=== PATIENT | male | born 1945 | race Caucasian/White ===

== ENCOUNTER 2017-05-12 05:52 | Day surgery (SDC) | payer MEDICARE, OTHER ==
[~2017-05-12] VITALS: Ht 175.3 cm; Wt 88.5 kg
--- NOTE | ~2017-05-12 | OP ---
PATIENT NAME: ANNMARIE BARNHART MEDICAL RECORD: [id number] :49 LOCATION:D.OPS ADMISSION DATE: SURGEON: ALEXANDER VEE MD DATE OF OPERATION: 05/12/2017 PREOPERATIVE DIAGNOSIS: History of complex colon polyps with tattoo polyps at 35 cm and 75 cm. POSTOPERATIVE DIAGNOSES: 1. History of complex colon polyps with tattoo polyps at 35 cm and 75 cm with significant regrowth of the polyp at 75 cm, there was a new 6 mm x 6 mm sessile polyp in the ascending colon. 2. No regrowth of any polypoid lesion at the 35 cm tattoo. PROCEDURES: 1. Total colonoscopy to cecum. 2. Hot biopsy forceps polypectomy times 1. 3. Polypectomy at 75 cm, which was a piecemeal polypectomy with epinephrine injection and then, ablation of the base of the polyp with the argon plasma practice administrator. SURGEON: Alexander Vee MD. SOLAR SALES MANAGER: None. BLOOD LOSS: Minimal. ANESTHESIA: General. COMPLICATIONS: None. The risks, possible complications and alternatives to procedure were explained to the patient. He elects to proceed. OPERATIVE COURSE: The patient was conveyed to the operating room electively on 05/12/2017. General anesthesia was induced by anesthesia staff. The patient was placed in the Singh position. A digital rectal examination was performed. A colonoscope was inserted through the anus. It was easily advanced to the cecum. Upon withdrawal, I irrigated and aspirated extensively. I dragged the folds. The pullback was greater than an 18-minute pullback. The prep was adequate. A small polyp was noted in the ascending colon. This was removed in its entirety utilizing hot biopsy forceps polypectomy technique. At 35 cm, the tattoo was noted. Across from the tattoo was the polypoid lesion, which was somewhat pedunculated. I advanced the sclerotherapy needle. Epinephrine injection was performed at the base of the polyp with 3 cc of dilute epinephrine solution. I tried to wrap the snare around the polyp, but this was not successful. I then removed the polyp in a piecemeal fashion. Numerous biopsies were taken. There was very little bleeding. I then utilized the argon plasma practice administrator with the right colon setting in the forced mode to ablate any residual polypoid tissue. I then continued to withdraw the endoscope. I irrigated and aspirated extensively. I utilized correct imaging as well as narrow band imaging. At 35 cm, the tattooed area was noted. I noted no regrowth of any polypoid lesion there. A retroflexed view was obtained in the rectum. I then unretroflexed the scope and removed it under direct vision. OPERATIVE REPORT [id number] ANNMARIE BARNHART The amount of regrowth of the polyp at 75 cm is worrisome. If the pathology is unfavorable, the patient may require a segmental resection. If not, then I will plan for another colonoscopy with the argon plasma practice administrator in 1 year. I will see the patient in my office in 2-3 weeks. TRANSINT:[id number] Voice Confirmation ID: [id number] DOCUMENT ID: [id number] ALEXANDER VEE MD CC: YVETTE BRADY MD, KELSEY GODOY MD and RAE MCKNIGHT [id number] DICTATION DATE: 05/12/17 1020 FOREIGN EXCHANGE POSITION CLERK: 05/12/17 194 [facility] 05/12/17 [facility] [address] [place] [address]
[~2017-05-12 05:52] MED LIST: HYTRIN1 MG PO; NEURONTIN 400400 MG PO; NORVASC5 MG PO; PEPCID AC20 MG PO; PLAVIX75 MG PO; PROTONIX40 MG PO; VITAMIN B-121000 MCG PO
[2017-05-12] MEDS ORDERED: ASPIRIN81 MG PO (06:52)
[2017-05-12 06:55] VITALS: BP 114/69; Ht 175.3 cm; Wt 88.5 kg
[2017-05-12 07:30] LABS: HEMATOCRIT 40.9 % (42.0-54.0); HEMOGLOBIN 13.9 g/dL (13.5-17.5); MCH 32.2 pg (26.0-34.0); MCV 94.7 fL (80.0-100.0); MEAN PLATELET VOLUME 9.7 fL (7.4-10.4); RBC 4.32 10x6/uL (4.20-6.10); RDW 13.4 % (11.5-14.5); WBC 7.4 10x3/uL (4.8-10.8)
== END 2017-05-12 11:35 | disposition home or self-care (01) ==
LOC: D.OPS 05:52 → D.PAN 08:30 → D.OPS 08:45 → D.PAN 08:50 → D.OPS 08:50
PROVIDERS: Anesthesiology
DX: K63.5 Polyp of colon (principal); D12.4 Benign neoplasm of descending colon; Z01.812 Encounter for preprocedural laboratory examination

== ENCOUNTER 2017-05-22 06:49 | Inpatient (IN) | payer MEDICARE, OTHER ==
[~2017-05-22] VITALS: Ht 175.3 cm; Wt 86.4 kg
[~2017-05-22 06:49] MED LIST changes: +ASPIRIN81 MG PO
[2017-05-22 07:48] LABS: BASOPHILS 0.5 % (0-2); EOSINOPHILS 1.2 % (0-7); HEMATOCRIT 34.9 % (42.0-54.0); HEMOGLOBIN 11.5 g/dL (13.5-17.5); IMMATURE GRANULOCYTES 0.7 % (0-5); LYMPHOCYTES 25.1 % (15-50); MCV 97.2 fL (80.0-100.0); MEAN PLATELET VOLUME 9.9 fL (7.4-10.4); MONOCYTES 9.1 % (2-11); NEUTROPHILS 63.4 % (40-80); RBC 3.59 10x6/uL (4.20-6.10); RDW 13.1 % (11.5-14.5); WBC 8.1 10x3/uL (4.8-10.8)
[2017-05-22 07:55] LABS: PLATELET COUNT 175 10x3/uL (130-400)
[2017-05-22 08:01] LABS: ALBUMIN 2.9 g/dL (3.4-5.0); ANION GAP 9.6 mmol/L (8-16); BILIRUBIN - TOTAL 0.1 mg/dL (0.2-1.3); CALCIUM 7.8 mg/dL (8.5-10.1); CARBON DIOXIDE 25.2 mmol/L (21.0-32.0); CREATININE - SERUM 1.2 mg/dL (0.6-1.3); POTASSIUM - SERUM 3.8 mmol/L (3.5-5.1); PROTEIN - SERUM 5.9 g/dL (6.4-8.2)
[2017-05-22 08:03] LABS: INR 1.07 (0.85-1.17); PROTIME 13.8 SECONDS (11.6-15.0)
--- NOTE | 2017-05-22 10:07 | NUR ---
PT ADMITTED TO ROOM 2229 FROM ER FOR RECTAL BLEEDING. PT AWAKE AND ALERT ORINETED X 3 LUNGS CLAER BILATERAL NO NOTED BLEEDING AT THIS TIME. VITAL SIGNS WITH IN NORMAL LIMITS. PIV NOTED TO LFA PATENT
--- NOTE | 2017-05-22 16:07 | NUR ---
PT REMAINS NPO HAD EPISODE X 1 OF RECATAL BLEEDING WITH LOOSE STOOL SMALL AMOUNT OF STOOL NOTED WITH MODERATE AMOUNT OF AP BLOOD WITH SMALL CLOTS NOTED IN TOILET AT THIS ITME.
[2017-05-22 16:35] VITALS: BP 112/47
--- NOTE | 2017-05-22 18:55 | NUR ---
DR MARIUSZ SAM NEW ORDER FOR REGULAR DIET
[2017-05-22 19:54] VITALS: BP 118/47; Ht 175.3 cm; Wt 86.4 kg
[2017-05-22 20:00] VITALS: BP 117/49
[2017-05-22 23:52] VITALS: BP 129/52
--- NOTE | 2017-05-23 03:09 | NUR ---
PATIENT IS RESTING QUIETLY WITH EYES CLOSED. NO SIGNS OF DISTRESS NOTED. BED IN LOWEST POSITION, CALL LIGHT IN REACH. BED RIALS UP X'S 2.
[2017-05-23 03:58] VITALS: BP 133/61
--- NOTE | 2017-05-23 07:00 | NUR ---
PT REC'D FROM [facility]. RESTING IN BED WATCHING TV. AAOX4. NO COMPLAINTS OF PAIN. REGULAR HEART RATE AND RHYTHM. LUNG SOUNDS CLEAR AND EQUAL BILAT. BOWEL SOUNDS HYPOACTIVE X4 QUADS. NO COMPLAINTS OF PAIN ON PALPATION. ABD ROUND AND SOFT. PIV TO L FOREARM FREE OF REDNESS AND SWELLING. BED LOW, CALL LIGHT IN REACH, DENIES NEEDS. CPOC.
[2017-05-23 08:00] LABS: BASOPHILS 0.3 % (0-2); EOSINOPHILS 0.8 % (0-7); HEMATOCRIT 31.9 % (42.0-54.0); HEMOGLOBIN 10.8 g/dL (13.5-17.5); IMMATURE GRANULOCYTES 0.3 % (0-5); LYMPHOCYTES 31.4 % (15-50); MCHC 33.9 g/dL (31.0-37.0); MEAN PLATELET VOLUME 9.6 fL (7.4-10.4); MONOCYTES 7.3 % (2-11); NEUTROPHILS 59.9 % (40-80); PLATELET COUNT 209 10x3/uL (130-400); RBC 3.37 10x6/uL (4.20-6.10); RDW 13.1 % (11.5-14.5); WBC 7.4 10x3/uL (4.8-10.8)
[2017-05-23 08:06] LABS: MCV 94.7 fL (80.0-100.0)
[2017-05-23 08:25] LABS: ALKALINE PHOSPHATASE 71 U/L (46-116); ALT (SGPT) 20 U/L (10-68); CALC OSMOLALITY 277 mosm/kg (275-300); CALCIUM 8.1 mg/dL (8.5-10.1); CARBON DIOXIDE 25.1 mmol/L (21.0-32.0); CHLORIDE - SERUM 107 mmol/L (98-107); GLUCOSE 106 mg/dL (74-106); MAGNESIUM - SERUM 1.9 mg/dL (1.8-2.4); PHOSPHOROUS 3.1 mg/dL (2.5-4.9); PROTEIN - SERUM 6.2 g/dL (6.4-8.2); SODIUM 139 mmol/L (136-145); UREA NITROGEN 13 mg/dL (7-18)
[2017-05-23 08:29] LABS: CREATININE - SERUM 0.8 mg/dL (0.6-1.3); eGFR NON AFRICAN AMERICAN > 90 mL/min (90-120)
[2017-05-23 09:02] VITALS: BP 138/51
--- NOTE | 2017-05-23 10:17 | NUR ---
PT RESTING IN BED WATCHING TV. NO COMPLAINTS. BED LOW, CALL LIGHT IN REACH, DENIES NEEDS. CPOC.
[2017-05-23 12:44] VITALS: BP 137/74
--- NOTE | 2017-05-23 13:10 | NUR ---
DISCONNECTED PT FROM IVF. UP AMBULATING THROUGH HALLWAYS WITHOUT DIFFICULTY. BED LOW, CALL LIGHT IN REACH, DENIES NEEDS. CPOC.
[2017-05-23 15:36] VITALS: BP 131/46
--- NOTE | 2017-05-23 16:00 | NUR ---
PT RESTING IN BED WITH NO VISABLE SIGNS OF PAIN OR DISCOMFORT. BED IN LOW POSITION AND CALL LIGHT WITHIN REACH. WILL CONTIUE TO MONITOR.
--- NOTE | 2017-05-23 18:43 | NUR ---
DISCHARGE INSTRUCTIONS REVIEWED AT THIS TIME. NO QUESTIONS OR CONCERNS VOICED. FOLLOW UP APPOINTMENTS DISCUSSED WELL. PIV TO L FOREARM DC'D WITH CATHETER INTACT. PRESSURE AND DRESSING APPLIED. DC PAPERS SIGNED. ESCORTED OUT VIA WC.
--- NOTE | 2017-05-25 15:04 | HP ---
PATIENT: ANNMARIE BARNHART MEDICAL RECORD: [id number] ACCOUNT: [id number] LOCATION:D.MS [id number] : 49 ADMISSION DATE: 05/22/17 HISTORY AND PHYSICAL EXAMINATION CHIEF COMPLAINT: Bleeding. HISTORY OF PRESENT ILLNESS: The patient presented through the Emergency Room this morning. He is a little over a week out from undergoing a colonoscopy with polypectomy. He had an episode of bright red blood per rectum. He came to the hospital, he has had another episode. It does not appear to be voluminous. He has been hemodynamically pretty stable. He is hungry. I am going to hold his Plavix. He is on Plavix due to peripheral vascular disease in the lower extremities where he had stents placed. I think that it could be fairly safe to discontinue the Plavix for at least 7 days. He is not having any abdominal pain. I do not see any prolapsed bleeding hemorrhoids. Symptoms came on suddenly. Nothing aggravates. Nothing alleviates. His symptoms are improved. PAST MEDICAL AND SURGICAL HISTORY: Neuropathy, has his hearing aids. Wears glasses and dentures. He is hypertensive and has peripheral vascular disease with lower extremity stents. He has a history of melanoma. He has a history of appendectomy, TURP, as well as removal of melanoma. ALLERGIES: LATEX. HOME MEDICINES: Famotidine. FAMILY HISTORY: A parent had cardiovascular disease. In sibling and children, there is no known significant disease process. SOCIAL HISTORY: Smokes everyday, I have advised him to quit smoking. He has got a [id number] history. PHYSICAL EXAMINATION: GENERAL: The patient does not appear acutely ill. He does not appear chronically ill. VITAL SIGNS: Reviewed. HEAD: ____ EARS: External ears appear normal. EYES: Extraocular movements are intact. NECK: Trachea is midline. CHEST: No intercostal retractions. PULMONARY: Nonlabored, no stridor. ABDOMEN: Nontender. ANUS: As described above. PSYCHIATRIC: Normal affect. NEUROLOGIC: Nonfocal, no lethargy. The patient answers questions appropriately, moves all extremities well. BACK: No thoracic kyphosis. LYMPHATICS: No lymphangitic streaking of the exposed extremities. IMPRESSION: Rectal bleeding likely from a polypectomy site and it appears to have ceased. PLAN: Serial observation. Serial physical examinations. Repeat labs in the HISTORY AND PHYSICAL [id number] BRONWYNDOMINICKMadalyn Sotelo morning. If he has had no further bleeding, I likely will dismiss him home tomorrow. TRANSINT:[id number] Voice Confirmation ID: [id number] DOCUMENT ID: [id number] ALEXANDER VEE MD at 1504 CC: [id number] DICTATION DATE: 05/22/171919 DISK RECOATER: 05/22/171950 [facility] IN 05/23/17 [facility] [address] [place] [id number]
--- NOTE | 2017-05-25 15:04 | DS ---
PATIENT:ANNMARIE BARNHART :49 MEDICAL RECORD: [id number] DISCHARGE SUMMARY ADMISSION DATE: 05/22/17 DISCHARGE DATE: 05/23/17 DATE: 05/23/2017 PRINCIPAL DIAGNOSIS: Post-polypectomy bleeding. HOSPITAL COURSE: The patient recently underwent a colonoscopy with polypectomy. I then restarted his Plavix and aspirin. The patient had a couple of bloody bowel movements. After the first bowel movement, he came to the Emergency Room. We stopped his Plavix. He is no longer having bloody bowel movements. He is tolerating a regular diet. He is being dismissed home. The patient also has acute blood loss anemia. I will see him in the office in 2-3 weeks. TRANSINT:[id number] Voice Confirmation ID: [id number] DOCUMENT ID: [id number] ALEXANDER VEE MD at 1504 CC: [id number] DICTATION DATE: 05/23/172003 JAVA SUPPORT ENGINEER: 05/24/17 0109 [facility] 05/23/17 [id number] [place] [address]
== END 2017-05-23 18:45 | disposition home or self-care (01) | DRG 920 ==
LOC: D.ER 06:49 → D.MS 08:20
PROVIDERS: Emergency Medicine; ADMIT Surgery
DX: K91.840 Postprocedural hemorrhage of a digestive system organ or structure following a digestive system procedure (principal); D62 Acute posthemorrhagic anemia; Y83.8 Other surgical procedures as the cause of abnormal reaction of the patient, or of later complication, without mention of misadventure at the time of the procedure; I73.9 Peripheral vascular disease, unspecified; Z79.02 Long term (current) use of antithrombotics/antiplatelets; F17.200 Nicotine dependence, unspecified, uncomplicated

== ENCOUNTER 2018-05-28 06:55 | Day surgery (SDC) | payer MEDICARE, OTHER ==
[2018-05-26 10:37] LABS: BASOPHILS 0.6 % (0-2); EOSINOPHILS 1.6 % (0-7); HEMATOCRIT 41.6 % (42.0-54.0); HEMOGLOBIN 14.4 g/dL (13.5-17.5); IMMATURE GRANULOCYTES 0.3 % (0-5); LYMPHOCYTES 37.6 % (15-50); MCH 32.7 pg (26.0-34.0); MCHC 34.6 g/dL (31.0-37.0); MCV 94.5 fL (80.0-100.0); MEAN PLATELET VOLUME 9.5 fL (7.4-10.4); MONOCYTES 11.7 % (2-11); NEUTROPHILS 48.2 % (40-80); PLATELET COUNT 200 10x3/uL (130-400); RDW 13.9 % (11.5-14.5)
[2018-05-26 10:54] LABS: APTT 29.4 SECONDS (22.8-39.4); INR 0.96 (0.85-1.17); PROTIME 12.4 SECONDS (11.6-15.0)
[~2018-05-28] VITALS: Ht 175.3 cm; Wt 87.5 kg
--- NOTE | ~2018-05-28 | OP ---
PATIENT NAME: ANNMARIE BARNHART MEDICAL RECORD: [id number] :49 LOCATION:D.OPS ADMISSION DATE: SURGEON: ALEXANDER VEE MD DATE OF OPERATION: 05/28/2018 PREOPERATIVE DIAGNOSES: 1. History of recurrent polyp at 75 cm, tattooed. 2. History of a complex polyp at 35 cm. During the last lower endoscopy, there was no regrowth of the polyp at 35 cm, which was also tattooed. POSTOPERATIVE DIAGNOSES: 1. No regrowth of the polyp at 35 cm, which was tattooed. 2. Recurrent polyp at 75 cm, which was behind a fold with a faded tattoo. The polyp is a 2.5 cm polyp and is sessile. 3. Two new polyps, which are both less than 1 cm and both were sessile and appeared adenomatous. PROCEDURES: 1. Total colonoscopy to cecum. 2. Epinephrine injection submucosally to create a pillow under the polyp at 75 cm. 3. Piecemeal cold polypectomy at 75 cm and then treatment of the polypoid base with the argon plasma retail wireless sales consultant with the right colon setting in the forced mode. 4. Two endoscopic clips were placed at the site of the polypectomy in order to prevent bleeding as the patient has had a post-polypectomy bleeding in the past and will be starting Plavix soon. 5. Retattooing at 75 cm adjacent to the polyp. 6. Hot biopsy forceps polypectomies times 2. SURGEON: Alexander Vee MD RUBBER GOODS TESTER WATER: None. BLOOD LOSS: Minimal. ANESTHESIA: General. The risks, possible complications and alternatives to the procedure were explained to the patient. He elects to proceed. The discussion specifically included, but was not limited to, bleeding requiring an emergency reoperation, infection, endoscopic perforation, regrowth of the polyp. OPERATIVE COURSE: The patient was conveyed the operating room electively on 05/28/2018. General anesthesia was induced by the anesthesia staff. The patient was placed in the Singh position. A digital rectal examination was performed. A colonoscope was inserted through the anus. It was easily advanced to the cecum. The prep was excellent. I intubated the ileum, which appeared normal. I slowly withdrew the endoscope. Across from the ileocecal valve, there was an 8 mm sessile polyp and this was removed in its entirety utilizing the hot biopsy forceps polypectomy technique. At 75 cm in the ascending colon, a polyp was noted behind a fold. This was the recurrent polyp. The tattoo had faded. I advanced a sclerotherapy needle. I injected submucosally on to the polyp with OPERATIVE REPORT [id number] ANNMARIE BARNHART epinephrine. I then performed multiple cold endoscopic biopsies removing almost the entire polyp. I then ablated the base with the argon plasma retail wireless sales consultant utilizing the right colon setting in the forced mode. I then placed 2 endoscopic clips to reinforce this area as it is at risk for post-polypectomy bleeding or post-polypectomy syndrome. I then advanced a sclerotherapy needle and injected 3 cc of Akanksha ink submucosally as a tattoo right next to the polypectomy site. I then slowly withdrew the endoscope. A combination of normal imaging and narrow band imaging were utilized. I noted the tattoo at 35 cm and there was no regrowth of the polyp. Another sessile polyp was noted and this was removed utilizing the hot biopsy forceps polypectomy technique. A retroflexed view was obtained in the rectum. I then unretroflexed the scope and removed it under direct vision. I plan to see the patient in my office in 2-3 weeks. I will plan for his next colonoscopy with the argon plasma retail wireless sales consultant to take place in 2 years. TRANSINT:[id number] Voice Confirmation ID: [id number] DOCUMENT ID: [id number] ALEXANDER VEE MD at 1007 CC: YVETTE BRADY MD, KELSEY GODOY MD and JOHN PAUL [id number] DICTATION DATE: 05/28/18 1223 ROTARY SOIL STABILIZER: 05/28/18 1240 [facility] 05/28/18 [facility] [address] [place] [id number]
[~2018-05-28 06:55] MED LIST changes: +MAGNESIUM OXID500 MG PO
[2018-05-28 07:39] VITALS: BP 113/67; BMI 28.5
[2018-05-28 07:57] VITALS: BP 113/67; Ht 175.3 cm; Wt 87.5 kg
== END 2018-05-28 13:45 | disposition home or self-care (01) ==
LOC: D.OPS 06:55 → D.PAN 11:30 → D.OPS 13:45
PROVIDERS: Anesthesiology
DX: D12.4 Benign neoplasm of descending colon (principal); K63.5 Polyp of colon; Z86.010 Personal history of colon polyps; Z01.812 Encounter for preprocedural laboratory examination